=== PATIENT | male | born 1955 ===

== ENCOUNTER 2025-06-25 06:19 | Day surgery (SDC) | payer BC, SELFPAY ==
[2025-06-25 10:31] LABS: Glucose - Point of Care 140 mg/dl (70-99)
== END 2025-06-25 11:37 | disposition home or self-care (01) ==
LOC: GI 06:19
PROVIDERS: ATTENDING PHYSICIAN Internal Medicine Gastroenterology; FAMILY PHYSICIAN Internal Medicine
DX: Z12.11 Encounter for screening for malignant neoplasm of colon (principal); K57.30 Diverticulosis of large intestine without perforation or abscess without bleeding; K51.40 Inflammatory polyps of colon without complications; K64.8 Other hemorrhoids; Z86.0100 Personal history of colon polyps, unspecified
CPT/HCPCS: 45385; 82962; 88305